=== PATIENT | male | born 1995 | race African-American/Black ===

== ENCOUNTER → 2017-01-05 | Outpatient (CLI) | payer OTHER | END | disposition home or self-care (01) | LOC: C.RDSM 10:32 | PROVIDERS: ATTEND Family Medicine | DX: S43.004A Unspecified dislocation of right shoulder joint, initial encounter (principal); X58.XXXA Exposure to other specified factors, initial encounter ==

== ENCOUNTER → 2017-02-22 | Outpatient (CLI) | payer OTHER ==
--- NOTE | 2017-02-22 09:03 | DIAGNOSTIC IMAGING REPORT ---
MRI OF THE RIGHT SHOULDER CLINICAL HISTORY: Right shoulder pain and instability. COMPARISON STUDY: Radiographs of the right shoulder dated 01/05/2017. MRI of the right shoulder dated 06/17/2015. TECHNIQUE: MRI of the right shoulder was performed utilizing various T1 and T2 weighted sequences in the axial, sagittal, coronal planes. IV contrast was not administered for this examination. FINDINGS: Rotator cuff: There is tendinopathy with high-grade partial-thickness tear seen at the musculotendinous junction of the supraspinatous tendon. No full-thickness tear is seen. The infraspinatus is preserved. The teres minor and subscapularis tendons are intact. There is trace subdeltoid bursal fluid. The acromioclavicular joint is unremarkable. Biceps tendon: The long head of the biceps tendon is normal in signal intensity and located within the bicipital groove. The anchor is maintained. Labrum: There is extensive circumferential labral tearing. The labrum is macerated an irregular. There is only minimal posterior and inferior labral tissue remaining. Susceptibility artifact along the anterior aspect of the glenoid is likely on a postoperative basis. Shoulder joint: Postoperative change with susceptibility artifact is seen along the anterior aspect of the shoulder. There is a moderate joint effusion. There is less than 50% thickness focal fissuring of the articular cartilage along the inferior aspect of the glenoid. A Hill-Sachs deformity is again seen in the posterior aspect of the humeral head. No significant marrow edema is identified in the humeral head. Mild marrow edema is suggested in the glenoid. Musculature and soft tissues: The musculature of the shoulder is normal in bulk and signal intensity. No atrophy is seen. IMPRESSION: 1. There is a high-grade partial-thickness (nearly full-thickness) tear of the supraspinatus tendon at the musculotendinous junction. This is new from 06/17/2015. 2. There is extensive maceration/tearing of the glenoid labrum which is diminutive. Foci of susceptibility artifact surrounding the labrum are consistent with previous surgery. 3. 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 4. Joint effusion. Electronically signed by: Jesse Blankenship M.D. 02/22/2017 9:02 AM Dictated Date/Time: 02/22/2017 8:48 AM
== END | disposition home or self-care (01) ==
LOC: C.MRI 07:33
PROVIDERS: ATTEND Orthopaedic Surgery
DX: M25.311 Other instability, right shoulder (principal); M75.101 Unspecified rotator cuff tear or rupture of right shoulder, not specified as traumatic; S43.401A Unspecified sprain of right shoulder joint, initial encounter; X58.XXXA Exposure to other specified factors, initial encounter